=== PATIENT | female | born 1960 | race Caucasian/White ===

== ENCOUNTER → 2017-10-10 | Outpatient (CLI) | payer SELFPAY | END | disposition home or self-care (01) | LOC: LAB 14:05 | DX: L08.0 Pyoderma (principal) | CPT/HCPCS: 87070; 87205 ==

== ENCOUNTER → 2018-01-03 | Outpatient (CLI) | payer SELFPAY | END | disposition home or self-care (01) | LOC: LAB SHORT 13:23 → PLD 13:23 | DX: L57.0 Actinic keratosis (principal) | CPT/HCPCS: 88305 ==

== ENCOUNTER → 2019-02-20 | Outpatient (CLI) | payer OTHER | END | disposition home or self-care (01) | LOC: LAB SHORT 07:40 → PLD 07:40 | DX: D48.5 Neoplasm of uncertain behavior of skin (principal) | CPT/HCPCS: 88305 ==

== ENCOUNTER → 2019-11-20 | Outpatient (CLI) | payer OTHER | END | disposition home or self-care (01) | LOC: PLD 07:36 → LAB SHORT 07:36 | DX: D48.5 Neoplasm of uncertain behavior of skin (principal) | CPT/HCPCS: 88305 ==

== ENCOUNTER → 2021-12-15 | Outpatient (CLI) | payer OTHER | END | disposition home or self-care (01) | LOC: PLD 15:37 → LAB SHORT 15:37 | DX: D48.5 Neoplasm of uncertain behavior of skin (principal) | CPT/HCPCS: 88305 ==

== ENCOUNTER → 2022-03-14 | Outpatient (CLI) | payer OTHER ==
[2022-03-17 19:10] LABS: HPV 16 Negative (Negative); HPV 18 Negative (Negative); HPV OTHER HR TYPES Negative (Negative)
== END | disposition home or self-care (01) ==
LOC: LAB SHORT 10:45 → LAB 10:45
PROVIDERS: Nurse Practitioner Family
DX: Z01.411 Encounter for gynecological examination (general) (routine) with abnormal findings (principal)
CPT/HCPCS: 87624; 88175

== ENCOUNTER → 2023-07-03 | Outpatient (CLI) | payer OTHER | LOC: LAB 12:03 → PLD 12:03 → LAB SHORT 12:03 | DX: D48.5 Neoplasm of uncertain behavior of skin (principal) | CPT/HCPCS: 88305 ==